=== PATIENT | female | born 1940 | race Caucasian/White ===

== ENCOUNTER 2023-07-21 11:30 | Outpatient (CLI) | payer OTHER, SELFPAY ==
[2023-07-21 17:32] LABS: Alanine Aminotransferase 16 U/L (6-35); Albumin Level 4.4 g/dL (3.5-5.1); Alkaline Phosphatase 96 U/L (38-126); Anion Gap 11 mmol/L (8-16); Aspartate Amino Transferase 50 U/L (14-36); Bilirubin,Total 0.4 mg/dL (0.2-1.3); Blood Urea Nitrogen 36 mg/dL (7-17); Calcium 9.8 mg/dL (8.4-10.2); Carbon Dioxide 23 mmol/L (22-30); Chloride 107 mmol/L (98-107); Cholesterol 183 mg/dL (0-200); Estimated Glomerular Filt Rate 36; Glucose 124 mg/dL (65-110); HDL Direct 53 mg/dL; Potassium 5.1 mmol/L (3.4-5.0); Sodium 141 mmol/L (137-145); Triglycerides 146 mg/dL (<150)
[2023-07-21 19:05] LABS: LDL Cholesterol Direct 86 mg/dL
[2023-07-21 19:19] LABS: Free T4 Free Thyroxine 1.06 ng/mL (0.78-2.19)
[2023-07-21 19:42] LABS: Creatinine Urine 37.3 mg/dL
[2023-07-21 20:08] LABS: MALB Creatinine Ratio 35.1 mg/g (0-30); Microalbumin Urine Random 13.1 mg/L (0-16.7)
== END 2023-07-21 11:31 | disposition home or self-care (01) ==
LOC: ANHWCLAB 11:31
PROVIDERS: PCP Internal Medicine; Visit Provider Internal Medicine
DX: E11.9 Type 2 diabetes mellitus without complications (principal)
CPT/HCPCS: 36415; 80053; 80061; 82043; 84439; 84443